=== PATIENT | male | born 1995 | race Caucasian/White ===

== ENCOUNTER 2017-01-30 07:43 | Inpatient (IN) | payer BC, OTHER ==
[~2017-01-30] VITALS: Ht 167.6 cm; Wt 71.7 kg
[~2017-01-30 07:43] MED LIST: CLON0.1T14 PO; DICY20TA28 PO; DIPH50CA37 PO; Gabapentin PO; HYDR-3895 PO; Ibuprofen PO
--- NOTE | 2017-01-31 14:25 | NUR ---
Admission Note: Admitted a 21 year old male under the care of Dr. Ezio Peña who states that he is here "to get off drugs." He is ambulatory ad laurita. Alert and oriented x 4. Able to answer questions regarding admission appropriately. He appears anxious, withdrawn with poor eye contact. Affect is flat. Respirations even and unlabored. No SOB noted. Noted with runny nose. Afebrile. Skin warm and dry to touch. Body search done by male BHT. Skin check done and noted with no skin breakdown, no lesions, no rashes noted. Abdomen soft and non-distended with (+) BS in all 4 quadrants. No complains of N/V/D or constipation noted. But, complains of abdominal cramps related to withdrawal symptoms. Reports LBM was on 01/30/2017. Bladder non-distended. Voids independently. Able to provide urine specimen for UDS. He reports allergic to lactose and shrimp. He stands 5'6 inches and weights 158lbs. Denies seizure history. However states that he has anxiety and was diagnosed in 2016. He has a PCP named Dr. Yancey in [place], [place] and has last seen him 4 months ago at [facility]. He states that he is prescribed Gabapentin 800mg PO q 12 hours, Vistaril 50 mg PO BID and 100 mg QHS and Seroquel 25 mg PO qhs for insomnia. Denies any family hx of substance abuse. VS: BP 138/86, Temp 98.1, RR 19, Pulse 110, RR - 19, PL 4/10 - lower back and legs COWS 14 Substance Use as ff: 1. Heroin - since 16 years old. Patient states that he smokes 0.5 to 1 gram daily since 12/30/2016 when he relapsed. Last use was on 01/30/2017 at 12 noon ( 1 gram). 2. Methamphetamine - since 16 years old. Patient states that he smoked 0.5grams to 1 gram since 01/30/2017 when he relapsed. Last use was on 01/30/2017 at 12 noon (1.5grams). Treatment History: 1. [facility] - 11/01/2016 to 11/07/2016 2. [facility] - 11/07/2016 to 12/23/2016 Dr. Peña in and examined the patient, admission orders were entered.
[2017-01-31 14:30] VITALS: BP 138/86
[2017-01-31] MEDS ORDERED: DICYCLOMINE HCL 20 MG TABLET PO PRN (14:45)
[2017-01-31] MEDS ORDERED: ONDANSETRON ODT 4 MG TAB.RAPDIS SL PRN (14:45)
[2017-01-31] MEDS ORDERED: MAG HYDROX/AL HYDROX/SIMETH 30 ML LIQUID UDC PO PRN (14:45)
[2017-01-31] MEDS ORDERED: diphenhydrAMINE 50 MG CAPSULE PO PRN (14:45)
[2017-01-31] MEDS ORDERED: PROMETHAZINE HCL 25 MG/1 ML VIAL IM PRN (14:45)
[2017-01-31] MEDS ORDERED: CLONIDINE HCL 0.1 MG TABLET PO PRN (14:45)
[2017-01-31] MEDS ORDERED: IBUPROFEN 600 MG TABLET PO PRN (14:45)
[2017-01-31] MEDS ORDERED: HYDROXYZINE PAMOATE 25 MG CAPSULE PO PRN (14:45)
[2017-01-31] MEDS ORDERED: ACETAMINOPHEN 325 MG TABLET PO PRN (14:45)
[2017-01-31] MEDS ORDERED: LOPERAMIDE HCL 2 MG CAPSULE PO PRN ×2 (14:45)
[2017-01-31] MEDS ORDERED: MAGNESIUM HYDROXIDE 30 ML LIQUID UDC PO PRN (14:45)
[2017-01-31] MEDS ORDERED: BUPRENORPHINE HCL 2 MG TAB.SUBL SL PRN (14:45)
[2017-01-31] MEDS ORDERED: MIRALAX 17 GM POWD.PACK PO PRN (14:45)
[2017-01-31] MEDS: GABAPENTIN 300 MG CAPSULE PO SCH ×2 (15:35→21:44)
--- NOTE | 2017-01-31 15:45 | NUR ---
UDS (+) Phenycyclidine: Patient's UDS noted to be (+) for phencyclidines, opiate and methamphetamine. Patient denies using phencyclidine and states "it must be from the meth." MD Peña made aware.
[2017-01-31 16:00] VITALS: BP 141/66
[2017-01-31 16:04] LABS: *AMPHETAMINE, URINE POSITIVE (NEGATIVE); *BARBITURATE, URINE NEGATIVE (NEGATIVE); *CANNABINOID, URINE NEGATIVE (NEGATIVE); *COCCAINE, URINE NEGATIVE (NEGATIVE); *OPIATE, URINE POSITIVE (NEGATIVE); *PHENCYCLIDINE SCREEN,URINE POSITIVE (NEGATIVE)
[2017-01-31] MEDS ORDERED: BUPRENORPHINE HCL 2 MG TAB.SUBL SL SCH ×2 (17:00)
[2017-01-31 18:07] LABS: BASOPHILS # (AUTO) 0.1 K/uL (0.0-0.2); EOSINOPHILS # (AUTO) 0.2 K/uL (0.0-0.7); EOSINOPHILS % (AUTO) 3.2 % (0.0-7.0); HEMATOCRIT 44.6 % (40.0-50.0); HEMOGLOBIN 14.6 g/dL (14.0-18.0); LYMPHOCYTES # (AUTO) 1.4 K/uL (0.8-4.8); LYMPHOCYTES % (AUTO) 19.4 % (20.5-51.5); MEAN CORPUSCULAR HEMOGLOBIN 26.4 uug (27.0-31.0); MEAN CORPUSCULAR HGB CONC 33 g/dL (32.0-37.0); MEAN CORPUSCULAR VOLUME 80.5 fL (82.0-92.0); MONOCYTES # (AUTO) 0.5 K/uL (0.1-1.30); MONOCYTES % (AUTO) 6.4 % (0.0-11.0); NEUTROPHILS # (AUTO) 5.1 K/uL (1.8-8.9); PLATELET COUNT (AUTO) 236 K/uL (150-450); RED BLOOD CELL COUNT(AUTO) 5.54 MIL/uL (4.70-6.10); RED CELL DISTRIBUTION WIDTH 12.6 % (11.5-14.5); WHITE BLOOD COUNT (AUTO) 7.3 K/uL (4.0-11.2)
[2017-01-31 18:25] LABS: ALANINE AMINOTRANSFERASE 24 U/L (16-63); ALBUMIN 4.4 g/dL (3.4-5.0); ALKALINE PHOSPHATASE 56 U/L (50-136); ASPARTATE AMINOTRANSFERASE 27 U/L (15-37); BILIRUBIN,TOTAL 0.7 mg/dL (0.2-1.0); CALCIUM 9.4 mg/dL (8.5-10.1); CARBON DIOXIDE 31 mmol/L (21-32); CHLORIDE 102 mmol/L (98-107); CREATININE 1.1 mg/dL (0.6-1.3); GFR 83 mL/min (>60); GLUCOSE 96 mg/dL (74-106); POTASSIUM 4.3 mmol/L (3.5-5.1); SODIUM SERUM 140 mmol/L (136-145); TOTAL PROTEIN, SERUM 8.2 g/dL (6.4-8.2); UREA NITROGEN, BLOOD 12 mg/dL (7-18)
[2017-01-31 18:35] LABS: THYROID STIMULATING HORMONE 1.226 mIU/mL (0.358-3.740)
--- NOTE | 2017-01-31 18:35 | NUR ---
End of Shift Notes: Patient is a 21 year old male admitted for opiate and methamphetamine dependence who was placed on a 5-day Subutex taper. Tolerated well. Patient started taper today. No adverse reactions noted. FULL CODE. Regular diet. Allergic to shrimp and lactose. Has past medical hx of anxiety. COWS 14 - presented with chills, hot flashes, muscle aches, and pains, anxiety, and stomach cramps. No PRNs given. VS stable. Unable to participate in group at this time. All needs met and attended. Will continue to monitor closely.
[2017-01-31 18:37] LABS: ETHANOL < 3 MG/DL (0-0)
[2017-01-31] MEDS ORDERED: QUET25TA PO (19:02)
[2017-01-31 19:10] LABS: HIV-1 p24 ANTIGEN NON REACTIVE (NONREACTIVE); HIV-1/2 ANTIBODY NON REACTIVE (NONREACTIVE)
--- NOTE | 2017-01-31 19:30 | NUR ---
START OF SHIFT-- Patient is a 21 year old male admitted for opiate and methamphetamine dependency. Pt placed on a 5-day Subutex taper. Tolerated well. Patient started taper today. No adverse reactions noted. FULL CODE. Regular diet. Allergic to shrimp and lactose. Has past medical hx of anxiety and insomnia. VS stable. All needs met and attended. Bed is locked in lowest position,side rails up x 2, Call light is within reach,will continue to monitor.
[2017-01-31 20:00] VITALS: BP 137/72
[2017-01-31] MEDS ORDERED: diphenhydrAMINE 1% CREAM 28.3 GM TUBE TP PRN (20:00)
--- NOTE | 2017-01-31 21:00 | NUR ---
PT C/O GENERALIZED ITCHING,C/O "FLEE BITES".PT NOTED TO HAVE SUPERFICIAL RASH SCATTERED ALL OVER BODY,REQUESTING FOR CREAM.MD NOTIFIED,ORDER NOTED FOR BENADRYL TOPICAL OINTMENT.
--- NOTE | 2017-01-31 21:45 | NUR ---
PRN MEDS--- PRN MOTRIN AND VISTARIL GIVEN ORDERED FOR LEG PAIN AND ANXIETY PER PT REQUEST.WILL MONITOR FOR EFFECTIVENESS.
--- NOTE | 2017-01-31 22:45 | NUR ---
PRN F/U PRN MEDS ARE EFFECTIVE.PT VERBALIZES RELIEF OF SYMPTOMS.
[2017-01-31] MEDS ORDERED: BUPRENORPHINE HCL 2 MG TAB.SUBL SL ONE (23:15)
[2017-02-01] VITALS: BP 136/97
[2017-02-01 04:00] VITALS: BP 122/82
--- NOTE | 2017-02-01 06:45 | NUR ---
END OF SHIFT-- Patient is a 21 year old male admitted for opiate and methamphetamine dependency. Pt placed on a 5-day Subutex taper. Tolerated well. Patient started taper today. No adverse reactions noted. FULL CODE. Regular diet. Allergic to shrimp and lactose. Has past medical hx of anxiety and insomnia. VS stable. All needs met and attended.PRN Motrin and Vistaril given last night with good effect.Pt slept 5 hrs;fluid intake was 710 mls,urine x 1 . Bed is locked in lowest position,side rails up x 2, Call light is within reach,will continue to monitor.
--- NOTE | 2017-02-01 07:50 | NUR ---
START OF SHIFT NOTE Received report from night nurse, 21 year old male admitted for opiate and methamphetamine dependence. Full code, Regular diet. Allergic to shrimp and lactose. pt reported PMH of anxiety. Pt cont with 5 days Subutex taper tolerated well. Pt received PRN Motrin/Vistaril effective per night nurse. Pt slept for 5hours. Received pt alert awake oriented x4 in stable condition, Skin intact warm and dry to touch. Vital signs stable. Educate the pt plan of the day and medication regimen, with good verbal understanding. Safety measures in place,call light within reach. Will cont to monitor.
[2017-02-01 08:00] VITALS: BP 147/93
[2017-02-01] MEDS: MULTIVITAMINS,THERAPEUTIC TABLET PO SCH (08:36)
[2017-02-01] MEDS: GABAPENTIN 300 MG CAPSULE PO SCH ×3 (08:37→22:06)
[2017-02-01] MEDS ORDERED: BUPRENORPHINE HCL 2 MG TAB.SUBL SL SCH (09:00)
[2017-02-01] MEDS ORDERED: TUBERCULIN,PURIF.PROT.DERIV. 5 TU/0.1 ML TEST ID ONE (09:00)
[2017-02-01 12:00] VITALS: BP 131/81
[2017-02-01] MEDS ORDERED: INFLUENZA VACCINE 0.5 ML DISP.SYRIN IM ONE (13:00)
[2017-02-01] MEDS ORDERED: PNEUMOCOCCAL 23-VAL P-SAC VAC 0.5 ML VIAL IM ONE (13:00)
[2017-02-01] MEDS: diphenhydrAMINE 2% 28.4 GM CREAM TP SCH ×2 (13:09→16:43)
[2017-02-01] MEDS: BUPRENORPHINE HCL 2 MG TAB.SUBL SL SCH ×2 (14:08→22:07)
[2017-02-01] MEDS: BACLOFEN 10 MG TABLET PO SCH ×2 (14:08→22:06)
[2017-02-01 16:00] VITALS: BP 133/77
--- NOTE | 2017-02-01 19:30 | NUR ---
End of Shift 21 year old male admitted for opiate and methamphetamine dependence. Full code, Regular diet. Allergic to shrimp and lactose. pt reported PMH of anxiety. Pt cont with 5 days Subutex taper tolerated well. Pt received PRN Motrin/Vistaril effective per night nurse. Pt slept for 5hours. pt alert awake oriented x4 in stable condition, Skin intact warm and dry to touch. Vital signs stable. Educate the pt plan of the day and medication regimen, with good verbal understanding. Pt did not receive PRNs during shift, attended groups, compliant with plan of care. COWS 5. PRN Safety measures in place,call light within reach. Endorsed to [employer] shift lead.
--- NOTE | 2017-02-01 19:31 | NUR ---
Start of shift note Received report from day shift nurse. Pt is a 21 yo male, A+Ox4, presenting to [facility] for Opiate/Meth dependence. Pt has Allergies to Lactose and Shrimp. Pt is on Fall and Seizure precautions. Pt has HX of Anxiety and Insomnia. Pt is on 5 day Subutex taper, tolerated well. No s/s of distress noted at this time. Respirations even and unlabored. Will continue to monitor.
[2017-02-01 20:35] VITALS: BP 99/78
--- NOTE | 2017-02-02 00:12 | NUR ---
V/S and COWS Refused V/S and COWS Refused. No s/s of distress noted at this time. Respirations even and unlabored. Will continue to monitor.
--- NOTE | 2017-02-02 04:17 | NUR ---
V/S and COWS Refused V/S and COWS Refused. No s/s of distress noted at this time. Respirations even and unlabored. Will continue to monitor.
--- NOTE | 2017-02-02 06:48 | NUR ---
End of shift note Pt is a 21 yo male, A+Ox4, presenting to [facility] for Opiate/Meth dependence. Pt has Allergies to Lactose and Shrimp. Pt is on Fall and Seizure precautions. Pt has HX of Anxiety and Insomnia. Pt is on 5 day Subutex taper, tolerated well. Pt slept for a total of 1 HR. Last COWS: 3 @2000. No s/s of distress noted at this time. Respirations even and unlabored. Will endorse to day shift nurse.
--- NOTE | 2017-02-02 07:40 | NUR ---
START OF SHIFT Pt is a 21 yr old male, AA&Ox3. Pt was admitted on 01/31/17 for Opiate Dependence and is on 5 day Subutex taper as ordered. Pt is full code, regular diet and allergies to Lactose and shrimp. Pt reports of PMH of Anxiety and Insomnia. Pt's last COWS score was 3 at 1999. Pt slept for 1 hr. Pt is currently in bed resting with respirations even and unlabored. No acute distress noted. Skin is intact, warm and dry to touch. No tremors seen or felt. Pt denies any n/v. Pt is c/o generalized muscle aching 03/15. Will f/u with eMAR. Encouraged increase fluid intake. Safety precautions observed. Call light is within reach. Will continue to monitor.
[2017-02-02 08:00] VITALS: BP 121/76
[2017-02-02] MEDS: BACLOFEN 10 MG TABLET PO SCH (09:18)
[2017-02-02] MEDS: MULTIVITAMINS,THERAPEUTIC TABLET PO SCH (09:18)
[2017-02-02] MEDS: GABAPENTIN 300 MG CAPSULE PO SCH ×3 (09:18→21:37)
[2017-02-02] MEDS: BUPRENORPHINE HCL 2 MG TAB.SUBL SL SCH ×3 (09:18→21:37)
[2017-02-02] MEDS: diphenhydrAMINE 2% 28.4 GM CREAM TP SCH ×2 (09:30→16:47)
[2017-02-02 12:00] VITALS: BP 126/78
[2017-02-02] MEDS ORDERED: BENZOCAINE ORAL CARE 12 ML BOTTLE MM PRN (15:00)
--- NOTE | 2017-02-02 15:00 | NUR ---
MD COMMUNICATION Pt c/o oral tooth pain. Reported to Dr. Jessica with new order for Anbesol Q6H PRN for tooth pain. New order noted and carried out
[2017-02-02 16:00] VITALS: BP 126/67
--- NOTE | 2017-02-02 18:50 | NUR ---
END OF SHIFT Pt is a 21 yr old male, AA&Ox3. Pt was admitted on 01/31/17 for Opiate Dependence and is on 5 day Subutex taper as ordered. Pt is full code, regular diet and allergies to Lactose and shrimp. Pt reports of PMH of Anxiety and Insomnia. Pt has been observed with increase drowsiness and remained in bed through majority of the day. Pt refused to attended group sessions or activities. No acute distress noted. Skin is intact, warm and dry to touch. No tremors seen or felt. Pt denies any n/v. No PRNs were given during the day. Last COWS score was 2 at 1600. Safety precautions observed. Call light is within reach.
[2017-02-02 20:25] VITALS: BP 125/81
--- NOTE | 2017-02-03 00:19 | NUR ---
V/S and COWS Refused V/S and COWS Refused. No s/s of distress noted at this time. Respirations even and unlabored. Will continue to monitor.
[2017-02-03 03:06] LABS: HCV AB <0.1 s/co ratio (0.0-0.9); HEPATITIS B CORE AB, IgM Negative (Negative); HEPATITIS B SURFACE AG Negative (Negative)
--- NOTE | 2017-02-03 04:14 | NUR ---
V/S and COWS Refused V/S and COWS Refused. No s/s of distress noted at this time. Respirations even and unlabored. Will continue to monitor.
--- NOTE | 2017-02-03 06:53 | NUR ---
End of shift note Pt is a 21 yo male, A+Ox4, [facility] to [facility] for Opiate/Meth dependence. Pt has Allergies to Lactose and Shrimp. Pt is on Fall and Seizure precautions. Pt has HX of Anxiety and Insomnia. Pt is on 5 day Subutex taper, tolerated well. Pt slept for a total of 8 HRS. Last COWS: 2 @2000. No s/s of distress noted at this time. Respirations even and unlabored. Will endorse to day shift nurse.
--- NOTE | 2017-02-03 07:30 | NUR ---
START OF SHIFT Client is a 21 year old male admitted for withdrawal from heroin. Today is his last day of 5-day Subutex taper, tolerating well. No adverse reactions noted. FULL CODE. Regular diet. Allergic to shrimp and lactose. He reports past medical hx of anxiety, opioid use disorder, chronic tobacco use, stimulant use disorder. Last COWS 2 @ 1999, he had an uneventful night, slept 8 hrs. upper and lower extremities with anti-ich cream topical BID, skin intact. Client is in room alert/oriented x 4, denies any N/V/D, reports chills and some anxiety. Call light within reach. Bed in lowest position. Will continue to monitor closely.
[2017-02-03 08:00] VITALS: BP 121/68
[2017-02-03] MEDS ORDERED: BUPRENORPHINE HCL 2 MG TAB.SUBL SL SCH (09:00)
[2017-02-03] MEDS: GABAPENTIN 300 MG CAPSULE PO SCH ×3 (09:09→20:06)
[2017-02-03] MEDS: MULTIVITAMINS,THERAPEUTIC TABLET PO SCH (09:09)
[2017-02-03] MEDS: diphenhydrAMINE 2% 28.4 GM CREAM TP SCH ×2 (09:11→16:33)
[2017-02-03 12:00] VITALS: BP 122/81
[2017-02-03] MEDS: METHOCARBAMOL 750 MG TABLET PO PRN (15:43)
--- NOTE | 2017-02-03 15:43 | NUR ---
PRN ROBAXIN, BENTYL, CLONIDINE Client reports body aches 8/10, abdominal spasm and cramps, and anxiety MB increased BP 148/82, Robaxin 750mg, Bentyl 20mg, and Clonidine 0.1mg respectively administered PO, risk/benefits discuss, he verbalized understanding. Call light within reach. Will continue to monitor.
[2017-02-03 16:00] VITALS: BP 148/82
--- NOTE | 2017-02-03 16:43 | NUR ---
REASSESSMENT PRN JUAN CARLOS HANSEN, CLONIDINE Client reports relief from body aches 2/10,but tolerable no more abdominal spasm/cramps, less anxious, he was able to join group therapy. Will continue to monitor.
[2017-02-03] MEDS ORDERED: METH-33 PO (17:57)
--- NOTE | 2017-02-03 19:30 | NUR ---
END OF SHIFT Client is a 21 year old male admitted for withdrawal from heroin. He completed 5-day Subutex taper, tolerated well with no adverse reactions noted. FULL CODE. Regular diet. Allergic to shrimp and lactose. He reports past medical hx of anxiety, opioid use disorder, chronic tobacco use, stimulant use disorder. Last COWS 6 @ 1999, PRN ROBAXIN, BENTYL, CLONIDINE for body aches 8/10, abdominal spasm and cramps, and anxiety MB increased BP 148/82, Robaxin 750mg, Bentyl 20mg, and Clonidine 0.1mg respectively administered PO, noted effective. Client is in room alert/oriented x 4, denies any N/V/D. Compliant with group therapy, Adequate intake and output. Call light within reach. Bed in lowest position. Endorsed to incoming nurse.
--- NOTE | 2017-02-03 19:31 | NUR ---
Start of shift note Received report from day shift nurse. Pt is a 21 yo male, A+Ox4, presenting to [facility] for Opiate/Meth dependence. Pt has Allergies to Lactose and Shrimp. Pt is on Fall and Seizure precautions. Pt has HX of Anxiety and Insomnia. Pt has completed 5 day Subutex taper and is due for discharge tomorrow. No s/s of distress noted at this time. Respirations even and unlabored. Will continue to monitor.
[2017-02-03 20:43] VITALS: BP 101/83
[2017-02-03 21:20] LABS: *AMPHETAMINE, URINE POSITIVE (NEGATIVE); *BARBITURATE, URINE NEGATIVE (NEGATIVE); *CANNABINOID, URINE NEGATIVE (NEGATIVE); *COCCAINE, URINE NEGATIVE (NEGATIVE); *OPIATE, URINE POSITIVE (NEGATIVE); *PHENCYCLIDINE SCREEN,URINE POSITIVE (NEGATIVE)
--- NOTE | 2017-02-04 00:08 | NUR ---
V/S and COWS Refused V/S and COWS Refused. No s/s of distress noted at this time. Respirations even and unlabored. Will continue to monitor.
--- NOTE | 2017-02-04 04:32 | NUR ---
V/S and COWS Refused V/S and COWS Refused. No s/s of distress noted at this time. Respirations even and unlabored. Will continue to monitor.
--- NOTE | 2017-02-04 07:10 | NUR ---
End of shift note Pt is a 21 yo male, A+Ox4, presenting to [facility] for Opiate/Meth dependence. Pt has Allergies to Lactose and Shrimp. Pt is on Fall and Seizure precautions. Pt has HX of Anxiety and Insomnia. Pt has completed 5 day Subutex taper and is due for discharge today. Pt slept for a total of 8 HRS. Last COWS: 2 @2000. No s/s of distress noted at this time. Respirations even and unlabored. Will endorse to day shift nurse.
--- NOTE | 2017-02-04 07:55 | NUR ---
START OF SHIFT Client is a 21 year old male admitted for withdrawal from heroin. He completed 4-day Subutex taper, tolerated well. No adverse reactions noted. FULL CODE. Regular diet. Allergic to shrimp and lactose. He reports past medical hx of anxiety, opioid use disorder, chronic tobacco use, stimulant use disorder. Last COWS 2 @ 1999, he had an uneventful night, slept 8 hrs. upper and lower extremities with anti-ich cream topical BID, skin intact. Client is in room alert/oriented x 4, denies any N/V/D, reports generalized body aches and some anxiety. Call light within reach. Bed in lowest position. Will continue to monitor closely.
[2017-02-04] MEDS: MULTIVITAMINS,THERAPEUTIC TABLET PO SCH (08:36)
[2017-02-04] MEDS: METHOCARBAMOL 750 MG TABLET PO PRN (08:36)
[2017-02-04] MEDS: GABAPENTIN 300 MG CAPSULE PO SCH (08:36)
--- NOTE | 2017-02-04 08:36 | NUR ---
PRN ROBAXIN 750MG Client reports generalized body aches 04/15, Robaxin 750mg administered, risk/benefits discuss, he verbalized understanding. Call light within reach. Will continue to monitor.
[2017-02-04] MEDS: diphenhydrAMINE 2% 28.4 GM CREAM TP SCH (08:37)
[2017-02-04 08:42] VITALS: BP 119/66
--- NOTE | 2017-02-04 09:38 | NUR ---
DISCHARGE NOTE Client was admitted for heroin withdrawal. Last COWS 3. Client denies any pain or discomfort, no s/s of withdrawal noted. Robaxin noted effective for generalized body aches. Client denies any SI/HI ideation. Vital signs stable. He states that he feels ready for discharge. Client prescription, discharge instructions and valuables secures in duffle bag and then given to T. All belongings returned to the client. He verbalized his discharge instructions. ID band removed, he ambulated off of the unit. Client left via [facility] to [facility] in stable condition.
== END 2017-02-04 09:38 | disposition other institution (70) | DRG 895 ==
LOC: SRC 01-31 13:39
PROVIDERS: ADMIT Internal Medicine; ATTEND Internal Medicine
PROC: HZ2ZZZZ Detoxification Services for Substance Abuse Treatment (ICD-10-PCS; principal; 2017-01-31)
PROC: HZ51ZZZ Individual Psychotherapy for Substance Abuse Treatment, Behavioral (ICD-10-PCS; 2017-02-01)
DX: F11.23 Opioid dependence with withdrawal (principal); F15.20 Other stimulant dependence, uncomplicated; F17.210 Nicotine dependence, cigarettes, uncomplicated; Z83.3 Family history of diabetes mellitus; Z81.1 Family history of alcohol abuse and dependence; D50.9 Iron deficiency anemia, unspecified; L29.9 Pruritus, unspecified; F41.9 Anxiety disorder, unspecified; S50.862A Insect bite (nonvenomous) of left forearm, initial encounter; S50.861A Insect bite (nonvenomous) of right forearm, initial encounter; W57.XXXA Bitten or stung by nonvenomous insect and other nonvenomous arthropods, initial encounter; Y92.89 Other specified places as the place of occurrence of the external cause
CPT/HCPCS: 36415; 80307; 80324; 80361; 83735; 84443; 85025; 86580; 86592; 86705; 86803; 87340; 87806; 90686; 90732; A4663; G6040-TC

== ENCOUNTER 2017-02-17 01:32 | Inpatient (IN) | payer BC, OTHER ==
[~2017-02-17] VITALS: Ht 167.6 cm; Wt 71.7 kg
[~2017-02-17 01:32] MED LIST changes: +METH-33 PO
[2017-02-17 13:45] VITALS: BP 143/89
[2017-02-17] MEDS ORDERED: MAG HYDROX/AL HYDROX/SIMETH 30 ML LIQUID UDC PO PRN (14:30)
[2017-02-17] MEDS ORDERED: CLONIDINE HCL 0.1 MG TABLET PO PRN (14:30)
[2017-02-17] MEDS ORDERED: ACETAMINOPHEN 325 MG TABLET PO PRN (14:30)
[2017-02-17] MEDS ORDERED: MIRALAX 17 GM POWD.PACK PO PRN (14:30)
[2017-02-17] MEDS ORDERED: LOPERAMIDE HCL 2 MG CAPSULE PO PRN ×2 (14:30)
[2017-02-17] MEDS ORDERED: MAGNESIUM HYDROXIDE 30 ML LIQUID UDC PO PRN (14:30)
[2017-02-17] MEDS ORDERED: ONDANSETRON ODT 4 MG TAB.RAPDIS SL PRN (14:30)
[2017-02-17] MEDS ORDERED: diphenhydrAMINE 50 MG CAPSULE PO PRN (14:30)
[2017-02-17] MEDS ORDERED: BUPRENORPHINE HCL 2 MG TAB.SUBL SL PRN (14:30)
[2017-02-17] MEDS ORDERED: DICYCLOMINE HCL 20 MG TABLET PO PRN (14:30)
[2017-02-17] MEDS: IBUPROFEN 600 MG TABLET PO PRN (14:57)
[2017-02-17] MEDS: GABAPENTIN 300 MG CAPSULE PO SCH ×2 (14:58→21:50)
[2017-02-17] MEDS: METHOCARBAMOL 750 MG TABLET PO PRN ×2 (14:58→21:50)
[2017-02-17] MEDS: HYDROXYZINE PAMOATE 25 MG CAPSULE PO PRN ×2 (14:58→21:50)
[2017-02-17 15:06] LABS: BASOPHILS % (AUTO) 0.3 % (0.0-2.0); EOSINOPHILS # (AUTO) 0.1 K/uL (0.0-0.7); EOSINOPHILS % (AUTO) 2.1 % (0.0-7.0); HEMATOCRIT 42.5 % (40.0-50.0); HEMOGLOBIN 14.2 g/dL (14.0-18.0); LYMPHOCYTES # (AUTO) 1.2 K/uL (0.8-4.8); LYMPHOCYTES % (AUTO) 21.3 % (20.5-51.5); MEAN CORPUSCULAR HEMOGLOBIN 26.8 uug (27.0-31.0); MEAN CORPUSCULAR HGB CONC 33 g/dL (32.0-37.0); MEAN CORPUSCULAR VOLUME 80.5 fL (82.0-92.0); MONOCYTES # (AUTO) 0.3 K/uL (0.1-1.30); MONOCYTES % (AUTO) 5.6 % (0.0-11.0); NEUTROPHILS # (AUTO) 3.9 K/uL (1.8-8.9); NEUTROPHILS % (AUTO) 70.7 % (38.5-71.5); PLATELET COUNT (AUTO) 259 K/uL (150-450); RED BLOOD CELL COUNT(AUTO) 5.28 MIL/uL (4.70-6.10); RED CELL DISTRIBUTION WIDTH 12.8 % (11.5-14.5); WHITE BLOOD COUNT (AUTO) 5.5 K/uL (4.0-11.2)
[2017-02-17 15:12] LABS: ALANINE AMINOTRANSFERASE 32 U/L (16-63); ALBUMIN 4.1 g/dL (3.4-5.0); ALKALINE PHOSPHATASE 47 U/L (50-136); ASPARTATE AMINOTRANSFERASE 22 U/L (15-37); BILIRUBIN,TOTAL 0.7 mg/dL (0.2-1.0); CALCIUM 9.4 mg/dL (8.5-10.1); CHLORIDE 104 mmol/L (98-107); CREATININE 0.9 mg/dL (0.6-1.3); GFR 105 mL/min (>60); GLUCOSE 71 mg/dL (74-106); POTASSIUM 3.9 mmol/L (3.5-5.1); SODIUM SERUM 143 mmol/L (136-145); TOTAL PROTEIN, SERUM 7.8 g/dL (6.4-8.2); UREA NITROGEN, BLOOD 12 mg/dL (7-18)
[2017-02-17 15:15] LABS: ETHANOL < 3 MG/DL (0-0)
[2017-02-17 15:27] LABS: CARBON DIOXIDE 34 mmol/L (21-32)
[2017-02-17 15:51] LABS: HIV-1 p24 ANTIGEN NON REACTIVE (NONREACTIVE); HIV-1/2 ANTIBODY NON REACTIVE (NONREACTIVE)
[2017-02-17 16:00] VITALS: BP 130/72
[2017-02-17 17:54] LABS: *AMPHETAMINE, URINE POSITIVE (NEGATIVE); *BARBITURATE, URINE NEGATIVE (NEGATIVE); *CANNABINOID, URINE POSITIVE (NEGATIVE); *COCCAINE, URINE NEGATIVE (NEGATIVE); *OPIATE, URINE POSITIVE (NEGATIVE); *PHENCYCLIDINE SCREEN,URINE NEGATIVE (NEGATIVE)
[2017-02-17 20:00] VITALS: BP 129/72
[2017-02-18] VITALS: BP 132/91
[2017-02-18 04:00] VITALS: BP 113/72
[2017-02-18 08:07] LABS: HCV AB <0.1 s/co ratio (0.0-0.9); HEPATITIS B CORE AB, IgM Negative (Negative); HEPATITIS B SURFACE AG Negative (Negative)
[2017-02-18 08:16] VITALS: BP 134/79
[2017-02-18] MEDS: GABAPENTIN 300 MG CAPSULE PO SCH ×3 (08:21→20:24)
[2017-02-18] MEDS: MULTIVITAMINS,THERAPEUTIC TABLET PO SCH (08:22)
[2017-02-18] MEDS: BUPRENORPHINE HCL 2 MG TAB.SUBL SL SCH ×2 (08:22→20:24)
[2017-02-18] MEDS: METHOCARBAMOL 750 MG TABLET PO PRN ×2 (08:22→20:24)
[2017-02-18] MEDS: DOCUSATE SODIUM 250 MG CAPSULE PO SCH (08:22)
[2017-02-18] MEDS ORDERED: 3 DAY TAPER BUPRENORPHINE -SERENITY PROTOCOL SL PRN (09:00)
[2017-02-18] MEDS ORDERED: TUBERCULIN,PURIF.PROT.DERIV. 5 TU/0.1 ML TEST ID ONE (09:00)
[2017-02-18 13:06] VITALS: BP 132/80
[2017-02-18] MEDS: IBUPROFEN 600 MG TABLET PO PRN (15:00)
[2017-02-18 17:49] VITALS: BP 137/92
[2017-02-18 20:06] VITALS: BP 123/78
[2017-02-19 00:30] VITALS: BP 124/78
[2017-02-19 04:20] VITALS: BP 110/65
[2017-02-19 08:00] VITALS: BP 132/85
[2017-02-19] MEDS: BUPRENORPHINE HCL 2 MG TAB.SUBL SL SCH ×3 (08:12→20:58)
[2017-02-19] MEDS: MULTIVITAMINS,THERAPEUTIC TABLET PO SCH (08:12)
[2017-02-19] MEDS: GABAPENTIN 300 MG CAPSULE PO SCH ×3 (08:12→20:58)
[2017-02-19] MEDS: DOCUSATE SODIUM 250 MG CAPSULE PO SCH (08:13)
[2017-02-19 12:00] VITALS: BP 121/84
[2017-02-19 16:00] VITALS: BP 121/68
[2017-02-19 20:51] VITALS: BP 139/88
[2017-02-19] MEDS: METHOCARBAMOL 750 MG TABLET PO PRN (20:58)
[2017-02-19] MEDS ORDERED: MUPIROCIN 2% OINT 22 GM TUBE NS SCH (21:00)
[2017-02-19] MEDS ORDERED: MUPIROCIN 2% OINT 22 GM TUBE ONE (22:06)
[2017-02-20 00:43] VITALS: BP 139/81
[2017-02-20 04:06] VITALS: BP 109/68
[2017-02-20 08:00] VITALS: BP 123/95
[2017-02-20] MEDS: MULTIVITAMINS,THERAPEUTIC TABLET PO SCH (08:12)
[2017-02-20] MEDS: DOCUSATE SODIUM 250 MG CAPSULE PO SCH (08:12)
[2017-02-20] MEDS: GABAPENTIN 300 MG CAPSULE PO SCH (08:12)
[2017-02-20] MEDS: MUPIROCIN 2% OINT 22 GM TUBE NS SCH ×2 (08:13→21:00)
[2017-02-20] MEDS ORDERED: BUPRENORPHINE HCL 2 MG TAB.SUBL SL SCH (09:00)
[2017-02-20] MEDS ORDERED: DICYCLOMINE HCL 10 MG CAPSULE PO ONE (11:00)
[2017-02-20] MEDS ORDERED: BACLOFEN 10 MG TABLET PO ONE (11:00)
[2017-02-20 12:00] VITALS: BP 130/85
[2017-02-20] MEDS: DICYCLOMINE HCL 20 MG TABLET PO SCH ×2 (15:07→23:11)
[2017-02-20] MEDS: BACLOFEN 20 MG TABLET PO SCH ×2 (15:07→23:11)
[2017-02-20] MEDS: GABAPENTIN 400 MG CAPSULE PO SCH ×2 (15:07→23:11)
[2017-02-20 16:00] VITALS: BP 130/64
[2017-02-20 18:19] LABS: *AMPHETAMINE, URINE NEGATIVE (NEGATIVE); *BARBITURATE, URINE NEGATIVE (NEGATIVE); *CANNABINOID, URINE NEGATIVE (NEGATIVE); *COCCAINE, URINE NEGATIVE (NEGATIVE); *OPIATE, URINE POSITIVE (NEGATIVE); *PHENCYCLIDINE SCREEN,URINE NEGATIVE (NEGATIVE)
[2017-02-20 20:59] VITALS: BP 125/89
[2017-02-21 00:31] VITALS: BP 122/76
[2017-02-21 04:40] VITALS: BP 121/82
[2017-02-21 08:00] VITALS: BP 123/77
[2017-02-21] MEDS: DICYCLOMINE HCL 20 MG TABLET PO SCH (08:23)
[2017-02-21] MEDS: MUPIROCIN 2% OINT 22 GM TUBE NS SCH (08:23)
[2017-02-21] MEDS: DOCUSATE SODIUM 250 MG CAPSULE PO SCH (08:23)
[2017-02-21] MEDS: MULTIVITAMINS,THERAPEUTIC TABLET PO SCH (08:23)
[2017-02-21] MEDS: BACLOFEN 20 MG TABLET PO SCH (08:23)
[2017-02-21] MEDS: GABAPENTIN 400 MG CAPSULE PO SCH (08:23)
[2017-02-21] MEDS ORDERED: DICY20TA28 PO (08:43)
[2017-02-21] MEDS ORDERED: MUPI22OI2 NS (08:43)
[2017-02-21] MEDS ORDERED: HYDR-3895 PO (08:43)
[2017-02-21] MEDS ORDERED: Baclofen PO (08:43)
[2017-02-21] MEDS ORDERED: Ibuprofen PO (08:43)
[2017-02-21] MEDS ORDERED: Gabapentin PO (08:43)
[2017-02-21] MEDS ORDERED: DIPH50CA37 PO (08:43)
[2017-02-21] MEDS ORDERED: CLON0.1T14 PO (08:43)
== END 2017-02-21 10:12 | disposition other institution (70) | DRG 895 ==
LOC: SRC 13:06
PROVIDERS: ADMIT Internal Medicine; ATTEND Internal Medicine
PROC: HZ2ZZZZ Detoxification Services for Substance Abuse Treatment (ICD-10-PCS; principal; 2017-02-17)
PROC: HZ41ZZZ Group Counseling for Substance Abuse Treatment, Behavioral (ICD-10-PCS; 2017-02-18)
DX: F11.23 Opioid dependence with withdrawal (principal); E87.3 Alkalosis; F15.23 Other stimulant dependence with withdrawal; F17.210 Nicotine dependence, cigarettes, uncomplicated; F41.9 Anxiety disorder, unspecified; Z22.322 Carrier or suspected carrier of Methicillin resistant Staphylococcus aureus; Z83.3 Family history of diabetes mellitus; Z81.1 Family history of alcohol abuse and dependence
CPT/HCPCS: 36415; 70030-TC; 80307; 80324; 80349; 80361; 83735; 84443; 85025; 86580; 86592; 86705; 86803; 87340; 87806; A4663; G6040-TC; Q0162

== ENCOUNTER 2017-07-10 08:16 | Inpatient (IN) | payer BC, OTHER ==
[~2017-07-10] VITALS: Ht 167.6 cm; Wt 65.8 kg
[~2017-07-10 08:16] MED LIST changes: +Baclofen PO; -METH-33 PO; +MUPI22OI2 NS
[2017-07-10 17:45] VITALS: BP 137/84
[2017-07-10] MEDS ORDERED: IBUPROFEN 600 MG TABLET PO PRN (17:45)
[2017-07-10] MEDS ORDERED: CLONIDINE HCL 0.1 MG TABLET PO PRN (17:45)
[2017-07-10] MEDS ORDERED: ONDANSETRON ODT 4 MG TAB.RAPDIS SL PRN (17:45)
[2017-07-10] MEDS ORDERED: DICYCLOMINE HCL 20 MG TABLET PO PRN (17:45)
[2017-07-10] MEDS ORDERED: ONDANSETRON 4 MG/2 ML VIAL IM PRN (17:45)
[2017-07-10] MEDS ORDERED: METHOCARBAMOL 750 MG TABLET PO PRN (17:45)
[2017-07-10] MEDS ORDERED: LOPERAMIDE HCL 2 MG CAPSULE PO PRN ×2 (17:45)
[2017-07-10] MEDS ORDERED: ACETAMINOPHEN 325 MG TABLET PO PRN (17:45)
[2017-07-10] MEDS ORDERED: BUPRENORPHINE HCL 2 MG TAB.SUBL SL PRN (17:45)
[2017-07-10] MEDS ORDERED: HYDROXYZINE PAMOATE 25 MG CAPSULE PO PRN (17:45)
[2017-07-10] MEDS ORDERED: MAG HYDROX/AL HYDROX/SIMETH 30 ML LIQUID UDC PO PRN (17:45)
[2017-07-10] MEDS ORDERED: LORAZEPAM 1 MG TABLET PO PRN ×2 (17:45)
[2017-07-10] MEDS ORDERED: LORAZEPAM 2 MG/1 ML VIAL IM PRN (17:45)
[2017-07-10] MEDS ORDERED: MAGNESIUM HYDROXIDE 30 ML LIQUID UDC PO PRN (17:45)
[2017-07-10] MEDS ORDERED: MIRALAX 17 GM POWD.PACK PO PRN (17:45)
[2017-07-10] MEDS ORDERED: diphenhydrAMINE 50 MG CAPSULE PO PRN (17:45)
--- NOTE | 2017-07-10 17:45 | NUR ---
PRE-ADMISSION Pt is a 21 yr old male, A&Ox3. Pt is presenting himself to [facility] for heroin use, ETOH use and methamphetamines use. Pt is observed to be intoxicated and observed with delayed speech. Pt is observed with facial redness. No tremors seen or felt. Pt states of allergies to Shellfish. VS BP 137/84, P 90, R 18, T 97.6, O2 98%, PA 0/10. COWS score 5, CIWA score 3. Pt was seen and examined by Dr. Peña. Pt is cleared to be admitted onto the unit.
--- NOTE | 2017-07-10 18:00 | NUR ---
BODY CHECK Body check is complete. Pt is observed with body rash on upper chest. Pt denies any itching or irritation. Skin is intact, warm and dry to touch.
[2017-07-10 18:06] LABS: *AMPHETAMINE, URINE POSITIVE (NEGATIVE); *BARBITURATE, URINE NEGATIVE (NEGATIVE); *CANNABINOID, URINE POSITIVE (NEGATIVE); *COCCAINE, URINE NEGATIVE (NEGATIVE); *OPIATE, URINE NEGATIVE (NEGATIVE); *PHENCYCLIDINE SCREEN,URINE NEGATIVE (NEGATIVE)
--- NOTE | 2017-07-10 19:30 | NUR ---
ADMISSION NOTE: 21 years old, well-nourished, caucasion- male received awake and sitting quietly on his bed. Patient responds to nurse's greeting and introduction with a delayed, flat , " Hello". Patient's color is pink and his skin is clean, warm, dry and intact. Horizontal, flat redness areas noted under bilateral nipples. Patient states, " The doctor told me that I was allergic to something and he gave me a shot of cortisone and one of benadryl, but I don't know what I'm allergic to". Patient denies any itching or any other discomfort. Patient is oriented to person, place, day, date and his personal situation. Reoriented to time. Patient states that he is allergic to: Shellfish, Shrimp, Lactose. Patient is 5 feet and 6 inches and he weighs 145 lbs. Patient states, " Oh I used to weigh 180 lbs about seven months ago". Vital signs are: 97.5-93-16 125/83, O2 Sat 100%, COWS 5, CIWA 3. Patient denies any seizure history but he states that he does have history of anxiety. Patient has brought no medications with him to [facility] and he states that his PCP is " Dr. Yancey of [facility] in [place]. For Detox/Rehab treatment history, patient states that he has been to (1) [facility], October,, for 6 days and he has been to (2) [facility], "twice since October 2016, in [place] for 2 weeks each time", but patient is not exactly sure of dates spent there. Patient is admitted for: (1) Heroin, 3 grams daily, smoked, last use of this drug was on 07/08/17, 1 gram. Patient has been using Heroin at this daily amount for 6 months. (2) Methamphetamine, 1.5 grams daily, snorted, last use of this drug was on 07/10/17, .5 gram. Patient has been using Methamphetamine at this daily rate for 6 months, (3) Alcohol, 2 to 3 cans beer (40 OZ each) daily, drank, last drink was on 07/10/17, ' 2 shots of Vodka'. Patient has been drinking at this daily rate for 6 months. Patient states that his longest period of sobriety was 2 months, November and December,. Patient is cooperative and verbally appropriate when interacting with nurse, though his speech is flat and delayed, his pupils dilated and non-reactive, body movements are slow and deliberate and he presents slightly drowsy. Patient oriented to his room, nurse call light and his immediate surroundings. Fall/Seizure precautions in place. Bed is locked and in lowest position, padded bed rails are up X 2 and call light within patient's easy reach.
[2017-07-10 19:52] LABS: BASOPHILS % (AUTO) 0.3 % (0.0-2.0); EOSINOPHILS # (AUTO) 0.1 K/uL (0.0-0.7); EOSINOPHILS % (AUTO) 1.1 % (0.0-7.0); HEMATOCRIT 46.1 % (40-50); HEMOGLOBIN 15.1 G/DL (14.0-18.0); LYMPHOCYTES # (AUTO) 1.4 K/UL (0.8-4.8); LYMPHOCYTES % (AUTO) 22.4 % (20.5-51.5); MEAN CORPUSCULAR HEMOGLOBIN 26.6 UUG (27.0-31.0); MEAN CORPUSCULAR HGB CONC 33 g/dL (32.0-37.0); MEAN CORPUSCULAR VOLUME 81.3 FL (82.0-92.0); MONOCYTES # (AUTO) 0.2 K/UL (0.1-1.30); MONOCYTES % (AUTO) 3.4 % (0.0-11.0); NEUTROPHILS # (AUTO) 4.3 K/UL (1.8-8.9); NEUTROPHILS % (AUTO) 72.8 % (38.5-71.5); PLATELET COUNT (AUTO) 262 K/UL (150-450); RED BLOOD CELL COUNT(AUTO) 5.67 MIL/UL (4.7-6.1)
[2017-07-10 20:00] VITALS: BP 125/83
[2017-07-10 20:07] LABS: ALANINE AMINOTRANSFERASE 27 U/L (16-63); ALKALINE PHOSPHATASE 60 U/L (50-136); AMYLASE 39 U/L (25-115); ASPARTATE AMINOTRANSFERASE 20 U/L (15-37); BILIRUBIN,TOTAL 1.4 mg/dL (0.2-1.0); CARBON DIOXIDE 31 mmol/L (21-32); CHLORIDE 107 mmol/L (98-107); GLUCOSE 93 mg/dL (74-106); MAGNESIUM 2.3 mg/dL (1.8-2.4); POTASSIUM 3.8 mmol/L (3.5-5.1); TOTAL PROTEIN, SERUM 7.8 g/dL (6.4-8.2); UREA NITROGEN, BLOOD 6 mg/dL (7-18)
[2017-07-10 20:08] LABS: ETHANOL < 3 MG/DL (0-0)
[2017-07-10] MEDS ORDERED: LORAZEPAM 1 MG TABLET PO SCH (21:00)
[2017-07-10] MEDS ORDERED: BUPRENORPHINE HCL 2 MG TAB.SUBL SL SCH (21:00)
[2017-07-10] MEDS ORDERED: THIAMINE HCL 200 MG/2 ML VIAL IM ONE (21:00)
[2017-07-10] MEDS: GABAPENTIN 300 MG CAPSULE PO SCH (21:02)
[2017-07-11] VITALS: BP 119/76
--- NOTE | 2017-07-11 | NUR ---
V/S: 97.7-62-16 119/76, O2 Sat 97%. Patient too sleepy to participate with COWS, CIWA assessments at this time.
[2017-07-11 04:00] VITALS: BP 114/63
--- NOTE | 2017-07-11 04:00 | NUR ---
V/S: 97.9-73-14 114/63, O2 Sat 98%. Patient too sleepy to do COWS, CIWA assessments at this time.
--- NOTE | 2017-07-11 06:30 | NUR ---
0630 Patient slept a total of 10 hours and 45 minutes, and he had 1 void and no stools. Total intake was 355 ml p.o. No Prn medications given this shift. V/SS afebrile, last COWS 5, last CIWA 3 at 1930. Patient very sleepy when aroused for V/S. Patient presently resting comfortably in stable condition with eyes closed and respirations quiet, even, unlabored at 14.
--- NOTE | 2017-07-11 07:23 | NUR ---
Start of Shift Notes: Received patient in his room. Alert and verbally responsive. Oriented x 4. Able to make needs known. Respirations even and unlabored. No SOB noted. Skin warm and dry to touch. Affect is flat. Patient states "I feel OK." Respirations even and unlabored. No SOB noted. Skin warm and dry to touch. Abdomen soft and non-distended. Denies any complains of N/V/D or constipation noted. Bladder non-distended. No complains of dysuria noted. Ambulatory ad laurita with steady gait. Patient is a 21 year old male admitted for opiate/methamphetamine and ETOH dependence who was placed on a 4-day Ativan and 4-day Subutex taper that will be started today. Prior to admission, patient was using 3 grams of Heroin IV daily, 1.5 grams of methamphetamine daily and 2 to 3 40z of ETOH. Allergic to shellfish, lactose and shrimp. FULL CODE. Regular diet. On fall and seizure precautions. Educated patient on his current plan of care for the day and his medication regimen. Encouraged oral fluid intake and encouraged group participatio to learn new skills to prevent relapse. Will continue to monitor closely.
[2017-07-11 08:00] VITALS: BP 119/70
[2017-07-11] MEDS: MULTIVITAMINS,THERAPEUTIC TABLET PO SCH (08:52)
[2017-07-11] MEDS: BUPRENORPHINE HCL 2 MG TAB.SUBL SL SCH ×3 (08:52→22:03)
[2017-07-11] MEDS: FOLIC ACID 1 MG TABLET PO SCH (08:52)
[2017-07-11] MEDS: LORAZEPAM 1 MG TABLET PO SCH ×3 (08:52→22:03)
[2017-07-11] MEDS: THIAMINE HCL 100 MG TABLET PO SCH (08:52)
[2017-07-11] MEDS: GABAPENTIN 300 MG CAPSULE PO SCH ×2 (08:52→22:03)
--- NOTE | 2017-07-11 08:52 | NUR ---
PRN Bentyl and Robaxin given: Patient noted with complain of muscle aches 6/10 and stomach cramps related to withdrawals. Medicated patient with Bentyl 20 mg PO and Robaxin 750mg PO as ordered. Will monitor for effectiveness.
[2017-07-11] MEDS ORDERED: TUBERCULIN,PURIF.PROT.DERIV. 5 TU/0.1 ML TEST ID ONE (09:00)
[2017-07-11] MEDS ORDERED: PNEUMOCOCCAL 23-VAL P-SAC VAC 0.5 ML VIAL IM ONE (09:00)
--- NOTE | 2017-07-11 09:52 | NUR ---
Re-assessment: Per patient, PRN Robaxin and Bentyl were effective in reducing patient's muscle aches ad stomach cramps. PL 01/13.
[2017-07-11 12:00] VITALS: BP 130/82
--- NOTE | 2017-07-11 12:31 | NUR ---
Add'l Notes: Substance Use: Patient reported that he occasionally smokes 1 gram of marijuana.
[2017-07-11] MEDS ORDERED: HYDROCORTISONE 1% LOTION 118 ML BOTTLE TOP PRN (12:45)
--- NOTE | 2017-07-11 15:59 | NUR ---
Subutex 4 mg SL/Ativan 2 mg PO not administered: Patient appears too sedated. Unable to stay awake for lunch. Dozes on and off and unable to carry on conversation. VS stable. Patient kept in a safe environment. Laying down in bed with even and unlabored breathing. MD Peña made aware.
[2017-07-11 16:00] VITALS: BP 139/82
--- NOTE | 2017-07-11 16:16 | NUR ---
COWS/CIWA Deferred: Patient is seen laying in bed at this time. Eyes closed. Breathing even and unlabored. Chest movement noted. Call light in reach. RR 26. COWS/CIWA deferred.
--- NOTE | 2017-07-11 18:53 | NUR ---
End of Shift Notes: Patient initiated his 4-day Ativan and 4-day Subutex taper as ordered. No adverse reactions noted. VS monitored closely q 4 hours. No significant abnormalities noted. Withdrawal symptoms were closely monitored. Patient presented with stomach cramps, chills, hot flashes, mild sweats, fine tremors, pupil dilation, myalgia, anxiety and agitation. Initial COWS 13/CIWA 7. Last COWS 7/CIWA 4. Held patients Subutex and Ativan dose at 1500 d/t oversedation. VS remains stable. Ativan and Subutex has been effective in reducing patients withdrawal symptoms. Compliant with care and treatment. Unable to participate in group and therapy sessions. All needs met and attended. Will continue to monitor closely.
[2017-07-11 20:00] VITALS: BP 108/67
--- NOTE | 2017-07-11 20:00 | NUR ---
1999 Patient received awake and sitting up on his bed, eating ice cream. Upon seeing nurse, patient states in delayed manner, " Hi, did I get my meds earlier?" Patient is oriented to person, place and his personal situation. Reoriented to day, date and time. Patient states, " Oh yeah, that's right". Patient's color is pink and his skin is warm, dry and intact. Patient states that he is " awake, alert and is feeling "okay now". Patient states further that he has been drinking fluids ad laurita and eating only a little bit of his Regular diet meal trays today. Patient states, " I'm not that hungry, but I been eating lots and lots of snacks". Vital signs are: 98-84-16 108/67, O2 Sat 97%, COWS 4 , CIWA 4 . Patient denies any pain or other discomforts and voices no request presently. Patient was admitted on 07/10/17 for: Heroin, Meth and Cannabis withdrawal, and he is currently on both a 4-Day Ativan medication taper and a 4-Day Subutex medication taper for withdrawal symptoms. Patient is cooperative and verbally appropriate for the most part, when interacting with nurse, however his mood/affect is flat, speech is very slightly delayed, eye contact is transient and body movements are somewhat slow and deliberate, and occasionally patient nods off. When this happens and patient's name is called by nurse, patient states, " Oh, I'm awake. I'm alert", and then he deliberately nods his head. Bed is locked and in lowest position, padded bed rails are up X 2 and call light within patient's easy reach.
[2017-07-12] VITALS: BP 117/65
--- NOTE | 2017-07-12 | NUR ---
V/S are: 98-77-16 117/65, O2 Sat 98%. Patient is too sleepy to do COWS, CIWA at this time.
[2017-07-12 04:00] VITALS: BP 109/72
--- NOTE | 2017-07-12 04:00 | NUR ---
V/S are: 98.3-67-12 109/72, O2 Sat 96%. Patient is too sleepy to do COWS, CIWA assessments at this time.
--- NOTE | 2017-07-12 06:30 | NUR ---
0630 Patient slept a total of 8.5 hours and he had 1 void and no stools. Total intake was 1,420 ml p.o. No Prn medications given this shift. V/SS afebrile, last COWS 4, last CIWA 4 at 1999. Patient is presently sleeping comfortably in low semi-fowlers position, with eyes closed and respirations deep, even, unlabored at 14.
--- NOTE | 2017-07-12 07:50 | NUR ---
START OF SHIFT Pt 21 y/o male admitted for heroin, methamphetamine, alcohol withdrawal. Pt received in on bed awake sitting watching television. Pt alert and oriented to name, place, and time. Perrla. Skin warm and dry to touch. Respirations even and unlabored. It was reported that pt slept for 9 hours last night. Bed on lowest position with side rails x2 up for safety. Call light within reach. No distress noted at this time.
[2017-07-12 08:10] VITALS: BP 128/83
[2017-07-12] MEDS: THIAMINE HCL 100 MG TABLET PO SCH (08:57)
[2017-07-12] MEDS: GABAPENTIN 300 MG CAPSULE PO SCH ×2 (08:57→20:09)
[2017-07-12] MEDS: MULTIVITAMINS,THERAPEUTIC TABLET PO SCH (08:57)
[2017-07-12] MEDS: FOLIC ACID 1 MG TABLET PO SCH (08:57)
[2017-07-12] MEDS: LORAZEPAM 1 MG TABLET PO SCH ×3 (09:00→20:08)
[2017-07-12] MEDS ORDERED: BUPRENORPHINE HCL 2 MG TAB.SUBL SL SCH ×2 (09:00→15:00)
--- NOTE | 2017-07-12 09:00 | NUR ---
MEDICATION HELD Ativan and Subutex held as per pt was sedated. Pt observed sitting on bed and frequently closing eyes. Pt also kept closing eyes during conversation. aware.
--- NOTE | 2017-07-12 09:13 | NUR ---
PRN Pt states has body pain 05/15. Gee po prn per MD order given and tolerated well.
--- NOTE | 2017-07-12 10:13 | NUR ---
PRN MIRACLE Pt observed on bed with eyes closed resting, but easily arousable to name. No distress noted at this time.
[2017-07-12 12:11] LABS: HEPATITIS B SURFACE AG Negative (Negative)
[2017-07-12 12:36] VITALS: BP 120/62
--- NOTE | 2017-07-12 15:45 | NUR ---
MEDICATION HELD Ativan and Subutex held as per pt was sedated. made aware.
[2017-07-12 16:00] VITALS: BP 119/70
[2017-07-12] MEDS: BUPRENORPHINE HCL 2 MG TAB.SUBL SL SCH ×2 (17:00→20:09)
--- NOTE | 2017-07-12 17:00 | NUR ---
MEDICATION HELD Subutex was held. Pt observed in room on bed appears sedated. Pt closing eyes during conversation.
--- NOTE | 2017-07-12 18:43 | NUR ---
END OF SHIFT Pt 21 y/o male admitted for heroin, methamphetamine, alcohol withdrawal. Pt alert and oriented to name, place, and time. P[place]. Skin warm and dry to touch. Respirations even and unlabored. Pt observed mostly in room throughout the day. Pt observed mostly in bed with eyes closed resting, but easily arousable to name. Pt would close eyes during conversations throughout the day. Pt did not attend group activity. Pt was seen by MD today. Bed on lowest position with side rails x2 up for safety. Call light within reach. No distress noted at this time.
[2017-07-12 20:00] VITALS: BP 121/82
--- NOTE | 2017-07-12 20:00 | NUR ---
START OF SHIFT Received 21 y/o male, awake, lying on bed in his room. Admitted for heroin, methamphetamine, alcohol withdrawal. Pt alert and oriented to name, place, and time. Respirations even and unlabored. Bed on lowest position with side rails x2 up for safety. Call light within reach. No distress noted at this time. Last CIWA 5. Will continue to monitor.
[2017-07-13] VITALS: BP 93/54
--- NOTE | 2017-07-13 07:24 | NUR ---
END OF SHIFT Px 21 y/o male admitted for heroin, methamphetamine, alcohol withdrawal. Pt alert and oriented to name, place, and time. [place]. Skin warm and dry to touch. Respirations even and unlabored. During the shift,, px has no complaints, mostly awake, took a shower and no PRN meds given. Bed on lowest position with side rails x2 up for safety. Call light within reach. No distress noted at this time. Slept for 4hrs with fluid intake of 850 ml, voided 2x with no BM. Last COWS 2 and CIWA 5. Endorsed to the AM shift nurse.
--- NOTE | 2017-07-13 07:30 | NUR ---
START OF SHIFT Pt 21 y/o male admitted for heroin, methamphetamine, alcohol withdrawal. Pt received in on bed with eye closed resting, but easily arousable to name. Pt alert and oriented to name, place, and time. [place]. Skin warm and dry to touch. Respirations even and unlabored. It was reported that pt slept for 4 hours last night. Bed on lowest position with side rails x2 up for safety. Call light within reach. No distress noted at this time.
[2017-07-13 08:00] VITALS: BP 133/87
[2017-07-13] MEDS: THIAMINE HCL 100 MG TABLET PO SCH (09:33)
[2017-07-13] MEDS: FOLIC ACID 1 MG TABLET PO SCH (09:33)
[2017-07-13] MEDS: LORAZEPAM 1 MG TABLET PO SCH ×2 (09:33→21:21)
[2017-07-13] MEDS: GABAPENTIN 300 MG CAPSULE PO SCH (09:33)
[2017-07-13] MEDS: MULTIVITAMINS,THERAPEUTIC TABLET PO SCH (09:33)
[2017-07-13] MEDS: BUPRENORPHINE HCL 2 MG TAB.SUBL SL SCH ×3 (09:33→21:21)
[2017-07-13 12:00] VITALS: BP 161/110
[2017-07-13 13:00] VITALS: BP 138/92
[2017-07-13] MEDS: GABAPENTIN 400 MG CAPSULE PO SCH ×2 (14:21→21:20)
[2017-07-13] MEDS: BACLOFEN 10 MG TABLET PO SCH ×2 (14:21→21:21)
[2017-07-13] MEDS ORDERED: hydrALAZINE HCL 50 MG TABLET PO PRN (15:00)
[2017-07-13 16:00] VITALS: BP 127/86
[2017-07-13] MEDS: HYDROCORTISONE 1% LOTION 118 ML BOTTLE TOP SCH (16:58)
--- NOTE | 2017-07-13 18:37 | NUR ---
END OF SHIFT Pt 21 y/o male admitted for heroin, methamphetamine, alcohol withdrawal. Pt alert and oriented to name, place, and time. P[place]. Skin warm and dry to touch. Respirations even and unlabored. Pt observed mostly in room throughout the day. Pt observed mostly in bed with eyes closed resting, but easily arousable to name. Pt would close eyes during conversations throughout the day. Pt selective with group activity today. Pt was seen by MD today. Bed on lowest position with side rails x2 up for safety. Call light within reach. No distress noted at this time.
--- NOTE | 2017-07-13 19:15 | NUR ---
Start of Shift Note: Patient is a 21 y/o male admitted on 07/10/17 for ETOH and Opiate dependence. PMHx of Anxiety. No seizure history noted. Pt is on a regular diet with allergies to lactose, shellfish & shrimp. Full Code status. Patient is on a 4-day Subutex and 4-day Ativan taper. Last COWS 4 CIWA 2. No PRN medications given during day shift. Patient is alert & oriented to name, place and situation. Patient is ambulatory with a steady gait. Patient presented with complains of 5/10 generalized body aches, sweating, chills, and anxiety. No shortness of breath noted. Respiration even & unlabored. Abdomen soft & non-distended. No nausea/noted. No hand tremors noted. Patient denies hallucinations. Safety measures in place. Bed locked in lowest position. Both side rails up. Call light within pts reach. Will continue to monitor.
[2017-07-13 20:00] VITALS: BP 152/97
[2017-07-13] MEDS: CLONIDINE HCL 0.1 MG TABLET PO SCH (21:21)
[2017-07-14] VITALS: BP 122/76
[2017-07-14 04:00] VITALS: BP 128/72
--- NOTE | 2017-07-14 07:16 | NUR ---
End of Shift Note: Pt had an uneventful night. Pt continues on his Ativan and Subutex taper and tolerating well. Patient stable and vitals remains WNL. Patient remained compliant with medications and treatment. Last COWS 5 CIWA 4. No PRN medications were given during my shift. Encouraged pt to increase fluid intake. Patient still asleep at this time with no s/s of distress. Pt slept for a total of 6 hours. Pt consumed 1200ml of fluids and voided 2x with no bowel movement. All needs attended. Safety measures in place. Will endorse pt to day shift nurse.
--- NOTE | 2017-07-14 07:30 | NUR ---
START OF SHIFT Pt 21 y/o male admitted for heroin, methamphetamine, alcohol withdrawal. Pt received in on bed with eyes closed resting, but easily arousable to name. Pt alert and oriented to name, place, and time. P[place]. Skin warm and dry to touch. Respirations even and unlabored. It was reported that pt slept for 6 hours last night. Bed on lowest position with side rails x2 up for safety. Call light within reach. No distress noted at this time.
[2017-07-14 08:00] VITALS: BP 122/84
[2017-07-14] MEDS ORDERED: LORAZEPAM 1 MG TABLET PO SCH (09:00)
[2017-07-14] MEDS ORDERED: BUPRENORPHINE HCL 2 MG TAB.SUBL SL SCH (09:00)
[2017-07-14] MEDS: MULTIVITAMINS,THERAPEUTIC TABLET PO SCH (09:10)
[2017-07-14] MEDS: FOLIC ACID 1 MG TABLET PO SCH (09:10)
[2017-07-14] MEDS: GABAPENTIN 400 MG CAPSULE PO SCH ×3 (09:10→21:16)
[2017-07-14] MEDS: BACLOFEN 10 MG TABLET PO SCH ×3 (09:10→21:16)
[2017-07-14] MEDS: HYDROCORTISONE 1% LOTION 118 ML BOTTLE TOP SCH ×2 (09:11→17:00)
[2017-07-14] MEDS: THIAMINE HCL 100 MG TABLET PO SCH (09:11)
[2017-07-14] MEDS: CLONIDINE HCL 0.1 MG TABLET PO SCH ×2 (09:11→21:16)
[2017-07-14 13:10] VITALS: BP 133/84
[2017-07-14] MEDS ORDERED: GABA-536 PO (13:30)
[2017-07-14] MEDS ORDERED: BACL10TA PO (13:30)
[2017-07-14] MEDS ORDERED: DIPH50CA37 PO (13:30)
[2017-07-14] MEDS ORDERED: CLON0.1T14 PO (13:30)
[2017-07-14] MEDS ORDERED: DICY20TA28 PO (13:30)
[2017-07-14] MEDS ORDERED: IBUP-1955 PO (13:30)
[2017-07-14] MEDS ORDERED: HYDR-3895 PO (13:30)
[2017-07-14 17:29] VITALS: BP_SYST 59
--- NOTE | 2017-07-14 18:18 | NUR ---
END OF SHIFT Pt 21 y/o male admitted for heroin, methamphetamine, alcohol withdrawal. Pt alert and oriented to name, place, and time. P[place]. Skin warm and dry to touch. Respirations even and unlabored. Pt observed mostly in room throughout the day. Pt attended group activity today. Pt was seen by MD today. Pt medication compliant and tolerated well. No ASE noted. Bed on lowest position with side rails x2 up for safety. Call light within reach. No distress noted at this time.
--- NOTE | 2017-07-14 19:15 | NUR ---
Start of Shift Note: Patient is a 21 y/o male admitted on 07/10/17 for ETOH and Opiate dependence. PMHx of Anxiety. No seizure history noted. Pt is on a regular diet with allergies to lactose, shellfish & shrimp. Full Code status. Patient completed his Subutex and Ativan taper and he is scheduled to be discharge tomorrow. Last COWS 2 CIWA 1. No PRN medications given during day shift. Patient is alert & oriented to name, place and situation. Patient is ambulatory with a steady gait. Patient presented with complains of 5/10 generalized body aches, sweating, and anxiety. No shortness of breath noted. Respiration even & unlabored. Abdomen soft & non-distended. No nausea/noted. No hand tremors noted. Patient denies hallucinations. Safety measures in place. Bed locked in lowest position. Both side rails up. Call light within pts reach. Will continue to monitor.
[2017-07-14 20:00] VITALS: BP 138/78
[2017-07-15 04:00] VITALS: BP 123/76
--- NOTE | 2017-07-15 07:07 | NUR ---
End of Shift Note: Pt had an uneventful night. Pt completed his taper and he is scheduled to be discharge today. Patient stable and vitals remains WNL. Patient remained compliant with medications and treatment. Last COWS 3 CIWA 3. No PRN medications were given during my shift. Encouraged pt to increase fluid intake. Patient still asleep at this time with no s/s of distress. Pt slept for a total of 7 hours. Pt consumed 850 ml of fluids and voided 2x with no bowel movement. All needs attended. Safety measures in place. Will endorse pt to day shift nurse.
--- NOTE | 2017-07-15 07:15 | NUR ---
Report received, Patient is a 21 y/o male admitted on 07/10/17 for ETOH and Opiate dependence. Pt is full code on a regular diet with allergies to lactose, shellfish & shrimp. PMHx of Anxiety. No seizure history noted. Patient completed his Subutex and Ativan taper and he is scheduled to be discharge today. His Last COWS 3 CIWA 3. 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 pt encouraged adequate fluid intake to facilitate with the detox process. Patient is alert & oriented to name, place and situation. Patient is ambulatory with a steady gait. Safety measures in place. Bed locked in lowest position. Both side rails up. Call light within pt's reach. Will continue to monitor.
[2017-07-15 08:00] VITALS: BP 116/76
[2017-07-15] MEDS: HYDROCORTISONE 1% LOTION 118 ML BOTTLE TOP SCH (09:00)
[2017-07-15 09:04] VITALS: BP 120/77
[2017-07-15] MEDS: GABAPENTIN 400 MG CAPSULE PO SCH (09:04)
[2017-07-15] MEDS: FOLIC ACID 1 MG TABLET PO SCH (09:04)
[2017-07-15] MEDS: THIAMINE HCL 100 MG TABLET PO SCH (09:04)
[2017-07-15] MEDS: BACLOFEN 10 MG TABLET PO SCH (09:04)
[2017-07-15] MEDS: MULTIVITAMINS,THERAPEUTIC TABLET PO SCH (09:04)
[2017-07-15] MEDS: CLONIDINE HCL 0.1 MG TABLET PO SCH (09:04)
--- NOTE | 2017-07-15 09:50 | NUR ---
DISCHARGE NOTE Pt is in stable condition. Vitals WNL, Pt alert and oriented x4, skin intact, Pt denies any SI/HI. All discharge paperwork completed dated and signed. Pt educated about discharge instructions, what to do after discharge when to contact MD as well as the s/s reportable to MD, pt verbalized understanding. Pt was provided with all of his discharge paperwork. Pt's last COWS:1 and CIWA:1 taken at 0800. Pt was discharged from [facility] on 07/15/17 at 0930. Pt left the building with all of his belongings, and prescriptions. MD and psychiatrist have been contacted notified and aware of pt's d/c.
== END 2017-07-15 09:35 | disposition other institution (70) | DRG 895 ==
LOC: SRC 17:01
PROVIDERS: ADMIT Internal Medicine; ATTEND Internal Medicine
PROC: HZ2ZZZZ Detoxification Services for Substance Abuse Treatment (ICD-10-PCS; principal; 2017-07-10)
PROC: HZ41ZZZ Group Counseling for Substance Abuse Treatment, Behavioral (ICD-10-PCS; 2017-07-13)
PROC: HZ31ZZZ Individual Counseling for Substance Abuse Treatment, Behavioral (ICD-10-PCS; 2017-07-13)
DX: F10.230 Alcohol dependence with withdrawal, uncomplicated (principal); I15.9 Secondary hypertension, unspecified; R17 Unspecified jaundice; F11.23 Opioid dependence with withdrawal; Y90.9 Presence of alcohol in blood, level not specified; F41.9 Anxiety disorder, unspecified; Z83.3 Family history of diabetes mellitus; Z81.1 Family history of alcohol abuse and dependence; F17.210 Nicotine dependence, cigarettes, uncomplicated; L30.9 Dermatitis, unspecified; F12.90 Cannabis use, unspecified, uncomplicated; F15.23 Other stimulant dependence with withdrawal
CPT/HCPCS: 36415; 70030-TC; 80307; 80324; 80349; 83735; 85025; 86580; 86592; 86705; 86803; 87340; 87806; 90732; A4663; G0480; J3411

== ENCOUNTER 2017-11-13 08:39 | Inpatient (IN) | payer BC, OTHER ==
[~2017-11-13] VITALS: Ht 167.6 cm; Wt 72.6 kg
[~2017-11-13 08:39] MED LIST changes: +BACL10TA PO; -Baclofen PO; +GABA-536 PO; -Gabapentin PO; +IBUP-1955 PO; -Ibuprofen PO; -MUPI22OI2 NS
[2017-11-14] MEDS ORDERED: CLONIDINE HCL 0.1 MG TABLET PO PRN (00:45)
[2017-11-14] MEDS ORDERED: ONDANSETRON ODT 4 MG TAB.RAPDIS SL PRN (00:45)
[2017-11-14] MEDS ORDERED: DICYCLOMINE HCL 20 MG TABLET PO PRN (00:45)
[2017-11-14] MEDS ORDERED: LORAZEPAM 1 MG TABLET PO PRN (00:45)
[2017-11-14] MEDS ORDERED: LOPERAMIDE HCL 2 MG CAPSULE PO PRN ×2 (00:45)
[2017-11-14] MEDS ORDERED: MAG HYDROX/AL HYDROX/SIMETH 30 ML LIQUID UDC PO PRN (00:45)
[2017-11-14] MEDS ORDERED: MIRALAX 17 GM POWD.PACK PO PRN (00:45)
[2017-11-14] MEDS ORDERED: LORAZEPAM 2 MG/1 ML VIAL IM PRN (00:45)
[2017-11-14] MEDS ORDERED: MAGNESIUM HYDROXIDE 30 ML LIQUID UDC PO PRN (00:45)
[2017-11-14] MEDS ORDERED: IBUPROFEN 400 MG TABLET PO PRN (00:45)
[2017-11-14] MEDS ORDERED: diphenhydrAMINE 50 MG CAPSULE PO PRN (00:45)
[2017-11-14] MEDS ORDERED: HYDROXYZINE PAMOATE 25 MG CAPSULE PO PRN (00:45)
[2017-11-14] MEDS ORDERED: ONDANSETRON 4 MG/2 ML VIAL IM PRN (00:45)
[2017-11-14] MEDS ORDERED: ACETAMINOPHEN 325 MG TABLET PO PRN (00:45)
[2017-11-14] MEDS ORDERED: BUPRENORPHINE HCL 2 MG TAB.SUBL SL PRN (00:45)
[2017-11-14] MEDS ORDERED: METHOCARBAMOL 750 MG TABLET PO PRN (00:45)
[2017-11-14] MEDS ORDERED: THIAMINE HCL 200 MG/2 ML VIAL IM ONE (00:45)
[2017-11-14] MEDS ORDERED: THIAMINE HCL 200 MG/2 ML VIAL ONE (01:32)
[2017-11-14] MEDS ORDERED: METHOCARBAMOL 750 MG TABLET ONE (01:32)
[2017-11-14 01:53] LABS: ALANINE AMINOTRANSFERASE 25 U/L (16-63); ALKALINE PHOSPHATASE 51 U/L (50-136); AMYLASE 48 U/L (25-115); ASPARTATE AMINOTRANSFERASE 12 U/L (15-37); BILIRUBIN,TOTAL 0.6 mg/dL (0.2-1.0); CARBON DIOXIDE 30 mmol/L (21-32); CHLORIDE 104 mmol/L (98-107); GLUCOSE 100 mg/dL (74-106); LIPASE 228 U/L (73-393); MAGNESIUM 2.1 mg/dL (1.8-2.4); UREA NITROGEN, BLOOD 7 mg/dL (7-18)
[2017-11-14 01:56] LABS: BASOPHILS % (AUTO) 0.3 % (0.0-2.0); EOSINOPHILS # (AUTO) 0.1 K/uL (0.0-0.7); HEMATOCRIT 43.3 % (36.7-47.1); HEMOGLOBIN 14.8 g/dL (12.5-16.3); LYMPHOCYTES % (AUTO) 33.4 % (20.5-51.5); MEAN CORPUSCULAR HEMOGLOBIN 27.8 uug (23.8-33.4); MEAN CORPUSCULAR HGB CONC 34 g/dL (32.5-36.3); MEAN CORPUSCULAR VOLUME 81.5 fL (73.0-96.2); MONOCYTES # (AUTO) 0.3 K/uL (2.0-10.0); MONOCYTES % (AUTO) 5.2 % (0.0-11.0); NEUTROPHILS # (AUTO) 3.7 K/uL (1.8-8.9); NEUTROPHILS % (AUTO) 60.1 % (38.5-71.5); PLATELET COUNT (AUTO) 248 K/uL (152-348); RED BLOOD CELL COUNT(AUTO) 5.32 MIL/uL (4.06-5.63); WHITE BLOOD COUNT (AUTO) 6.1 K/uL (3.6-10.2)
[2017-11-14 02:00] LABS: THYROID STIMULATING HORMONE 1.682 mIU/mL (0.358-3.740)
[2017-11-14 02:02] LABS: ETHANOL < 3 MG/DL (0-0)
[2017-11-14 02:13] LABS: TOTAL PROTEIN, SERUM 3.7 g/dL (6.4-8.2)
[2017-11-14 04:00] VITALS: BP 141/92
[2017-11-14 05:13] LABS: *AMPHETAMINE, URINE POSITIVE (NEGATIVE)
[2017-11-14 05:14] LABS: *CANNABINOID, URINE POSITIVE (NEGATIVE); *COCCAINE, URINE NEGATIVE (NEGATIVE); *OPIATE, URINE NEGATIVE (NEGATIVE); *PHENCYCLIDINE SCREEN,URINE NEGATIVE (NEGATIVE)
[2017-11-14 05:35] VITALS: BP 140/91
[2017-11-14] MEDS: LORAZEPAM 1 MG TABLET PO PRN ×2 (05:39→08:38)
[2017-11-14] MEDS ORDERED: IBUPROFEN 400 MG TABLET ONE (05:49)
[2017-11-14] MEDS ORDERED: CLONIDINE HCL 0.1 MG TABLET ONE (05:50)
[2017-11-14] MEDS ORDERED: LORAZEPAM 1 MG TABLET ONE (05:50)
[2017-11-14] MEDS ORDERED: DICYCLOMINE HCL 20 MG TABLET ONE (05:50)
[2017-11-14 08:00] VITALS: BP 132/87
[2017-11-14] MEDS: MULTIVITAMINS,THERAPEUTIC TABLET PO SCH (08:38)
[2017-11-14] MEDS: THIAMINE HCL 100 MG TABLET PO SCH (08:38)
[2017-11-14 12:00] VITALS: BP 101/68
[2017-11-14] MEDS ORDERED: IBUPROFEN 600 MG TABLET PO PRN (12:45)
[2017-11-14] MEDS: BUPRENORPHINE HCL 2 MG TAB.SUBL SL SCH ×2 (13:29→21:43)
[2017-11-14] MEDS: LORAZEPAM 1 MG TABLET PO SCH ×2 (14:53→21:34)
[2017-11-14] MEDS: GABAPENTIN 300 MG CAPSULE PO SCH ×2 (14:53→21:34)
[2017-11-14 16:00] VITALS: BP 112/76
[2017-11-14 20:00] VITALS: BP 111/78
[2017-11-15] VITALS: BP 112/74
[2017-11-15 04:00] VITALS: BP 111/66
[2017-11-15 08:00] VITALS: BP 139/78
[2017-11-15 08:06] LABS: HEPATITIS B SURFACE AG Negative (Negative)
[2017-11-15] MEDS: MULTIVITAMINS,THERAPEUTIC TABLET PO SCH (08:21)
[2017-11-15] MEDS: THIAMINE HCL 100 MG TABLET PO SCH (08:21)
[2017-11-15] MEDS: GABAPENTIN 300 MG CAPSULE PO SCH ×2 (08:21→14:22)
[2017-11-15] MEDS: LORAZEPAM 1 MG TABLET PO SCH ×3 (08:22→21:08)
[2017-11-15] MEDS: BUPRENORPHINE HCL 2 MG TAB.SUBL SL SCH ×3 (08:22→21:08)
[2017-11-15] MEDS ORDERED: TUBERCULIN,PURIF.PROT.DERIV. 5 TU/0.1 ML TEST ID ONE (09:00)
[2017-11-15 12:00] VITALS: BP 119/70
[2017-11-15] MEDS ORDERED: METHOCARBAMOL 750 MG TABLET PO PRN (12:15)
[2017-11-15 16:00] VITALS: BP 130/77
[2017-11-15 20:00] VITALS: BP_SYST 132; BP_DIAS 78; BP_DIAS 90
[2017-11-15] MEDS ORDERED: GABAPENTIN 300 MG CAPSULE PO SCH (21:00)
[2017-11-15] MEDS: CLONIDINE HCL 0.1 MG TABLET PO SCH (21:07)
[2017-11-16 08:00] VITALS: BP 123/73
[2017-11-16] MEDS: MULTIVITAMINS,THERAPEUTIC TABLET PO SCH (08:36)
[2017-11-16] MEDS: GABAPENTIN 300 MG CAPSULE PO SCH (08:36)
[2017-11-16] MEDS: CLONIDINE HCL 0.1 MG TABLET PO SCH (08:37)
[2017-11-16] MEDS: THIAMINE HCL 100 MG TABLET PO SCH (08:38)
[2017-11-16] MEDS ORDERED: LORAZEPAM 1 MG TABLET PO SCH (09:00)
[2017-11-16] MEDS ORDERED: INFLUENZA VACCINE 2017-2018 0.5 ML DISP.SYRIN IM ONE (09:00)
[2017-11-16] MEDS ORDERED: PNEUMOCOCCAL 23-VAL P-SAC VAC 0.5 ML VIAL IM ONE (09:00)
[2017-11-16] MEDS ORDERED: BUPRENORPHINE HCL 2 MG TAB.SUBL SL SCH (09:00)
[2017-11-16 12:00] VITALS: BP 113/76
[2017-11-16] MEDS ORDERED: ASPIRIN/ACETAMINOPHEN/CAFFEINE TABLET PO PRN (14:45)
[2017-11-16] MEDS ORDERED: KETOROLAC TROMETHAMINE 30 MG INJ IM PRN (14:45)
[2017-11-16] MEDS ORDERED: BACLOFEN 10 MG TABLET PO SCH ×2 (15:00→21:00)
[2017-11-16] MEDS ORDERED: GABAPENTIN 300 MG CAPSULE PO SCH (15:00)
[2017-11-16 16:00] VITALS: BP 140/68
[2017-11-16] MEDS ORDERED: DIPH50CA37 PO (19:58)
[2017-11-16] MEDS ORDERED: HYDR-3895 PO (19:58)
[2017-11-16] MEDS ORDERED: DICY20TA28 PO (19:58)
[2017-11-16] MEDS ORDERED: METH-406 PO (19:58)
[2017-11-16] MEDS ORDERED: CLON0.1T14 PO (19:58)
[2017-11-16] MEDS ORDERED: IBUP-1955 PO (19:58)
[2017-11-16] MEDS ORDERED: GABA-536 PO (19:58)
[2017-11-16 20:22] VITALS: BP 121/70
[2017-11-16] MEDS: GABAPENTIN 400 MG CAPSULE PO SCH (22:48)
[2017-11-17 00:28] VITALS: BP 114/65
[2017-11-17 04:14] VITALS: BP 117/69
[2017-11-17 08:00] VITALS: BP 130/70
[2017-11-17] MEDS: GABAPENTIN 400 MG CAPSULE PO SCH (08:29)
[2017-11-17] MEDS: THIAMINE HCL 100 MG TABLET PO SCH (08:29)
== END 2017-11-17 09:32 | disposition other institution (70) | DRG 895 ==
LOC: SRC 11-14 00:10
PROVIDERS: ADMIT Internal Medicine; ATTEND Internal Medicine
PROC: HZ2ZZZZ Detoxification Services for Substance Abuse Treatment (ICD-10-PCS; principal; 2017-11-14)
PROC: HZ31ZZZ Individual Counseling for Substance Abuse Treatment, Behavioral (ICD-10-PCS; 2017-11-16)
DX: F10.230 Alcohol dependence with withdrawal, uncomplicated (principal); I15.9 Secondary hypertension, unspecified; F11.23 Opioid dependence with withdrawal; F15.23 Other stimulant dependence with withdrawal; Y90.0 Blood alcohol level of less than 20 mg/100 ml; F17.210 Nicotine dependence, cigarettes, uncomplicated; F41.9 Anxiety disorder, unspecified; Z91.89 Other specified personal risk factors, not elsewhere classified; F12.10 Cannabis abuse, uncomplicated; Z83.3 Family history of diabetes mellitus
CPT/HCPCS: 36415; 80307; 83690; 83735; 84443; 85025; 86580; 86592; 86705; 86803; 87340; 87806; 90686; 90732; A4663; G0480; J1885; J3411

== ENCOUNTER 2018-11-03 17:10 | Inpatient (IN) | END 2018-11-05 17:25 | disposition left against medical advice (07) | DRG 894 | DX: F10.230 Alcohol dependence with withdrawal, uncomplicated (principal); F15.23 Other stimulant dependence with withdrawal; Y90.0 Blood alcohol level of less than 20 mg/100 ml; F12.10 Cannabis abuse, uncomplicated; F17.210 Nicotine dependence, cigarettes, uncomplicated; F41.9 Anxiety disorder, unspecified; Z83.3 Family history of diabetes mellitus; Z91.89 Other specified personal risk factors, not elsewhere classified ==